=== PATIENT | male | born 1965 | race African-American/Black ===

== ENCOUNTER 2017-06-05 16:10 | Emergency (ER) | payer MEDICAID, OTHER ==
[~2017-06-05] VITALS: Ht 185.4 cm; Wt 90.7 kg
[2017-06-05 16:57] VITALS: BP 138/94
[2017-06-05] MEDS ORDERED: SEROQUEL200 MG ORAL (17:24)
[2017-06-05] MEDS ORDERED: ZOLOFT20 MG/1 ML ORAL (17:24)
[2017-06-05] MEDS ORDERED: ZYPREXA20 MG ORAL (17:24)
[2017-06-05] MEDS ORDERED: QUEtiapine 200mg tab ORAL ONE ×2 (17:45)
[2017-06-05] MEDS ORDERED: ZyPREXA Zydis 10mg tab ORAL ONE (17:45)
[2017-06-05] MEDS ORDERED: Sertraline 50mg tab ORAL ONE (17:45)
[2017-06-05 18:13] LABS: BASOPHILS % (AUTO) 0.8 % (0.0-2.0); EOSINOPHILS % (AUTO) 0.2 % (0.0-3.0); HEMATOCRIT 45.6 % (42.0-52.0); LYMPHOCYTES % (AUTO) 16.9 % (20.0-45.0); MEAN CORPUSCULAR VOLUME 92 FL (80-99); MONOCYTES % (AUTO) 4.5 % (1.0-10.0); NEUTROPHILS % (AUTO) 77.6 % (45.0-75.0); PLATELET COUNT 276 K/UL (150-450); RED BLOOD COUNT 4.97 M/UL (4.70-6.10); RED CELL DISTRIBUTION WIDTH 10.5 % (11.6-14.8); WHITE BLOOD COUNT 8.8 K/UL (4.8-10.8)
[2017-06-05 18:34] LABS: ANION GAP 5 mmol/L (5-15); BLOOD UREA NITROGEN 8 mg/dL (7-18); CALCIUM 9.2 MG/DL (8.5-10.1); CARBON DIOXIDE 29 MMOL/L (21-32); CHLORIDE 104 MMOL/L (98-107); CREATININE 1.3 MG/DL (0.55-1.30); POTASSIUM 4.2 MMOL/L (3.5-5.1); SODIUM 138 MMOL/L (136-145)
[2017-06-05 18:39] LABS: ALANINE AMINOTRANSFERASE 23 U/L (12-78); ALBUMIN 3.9 G/DL (3.4-5.0); ALKALINE PHOSPHATASE 82 U/L (46-116); ASPARTATE AMINO TRANSFERASE 17 U/L (15-37); BILIRUBIN,TOTAL 0.3 MG/DL (0.2-1.0)
[2017-06-05 21:04] VITALS: BP 127/88
--- NOTE | 2017-06-05 22:44 | Emergency Room Report ---
History of Present Illness General Chief Complaint: Suicidal Source: Patient Present Illness HPI 52-year-old male presents ED for evaluation. Patient states he is feeling suicidal or wants to hurt himself the last few days. Has a plan to use a knife. Sister was concerned so asked patient come to hospital for evaluation. Patient states he is hearing voices. Denies smoking or drug use. Notes psychiatric history but states he has not been compliant with his medication for several months. normally takes Seroquel, Zyprexa and Zoloft. No other aggravating or relieving factors. Denies any other associated symptoms Allergies: Coded Allergies: No Known Allergies (Unverified , 06/05/17) Patient History Past Medical History: psych hx Past Surgical History: none Pertinent Family History: none Social History: Denies: smoking, alcohol use, drug use Immunizations: UTD Reviewed Nursing Documentation: PMH: Agreed, PSxH: Agreed Nursing Documentation-PMH Hx Neurological Problems: Yes - Schizophrenia; Paranoia Review of Systems All Other Systems: negative except mentioned in HPI Physical Exam Vital Signs Date Time Temp Pulse Resp B/P (MAP) Pulse Ox O2 Delivery O2 Flow Rate FiO2 06/05/17 16:47 98.4 77 16 141/97 97 06/05/17 16:57 Room Air Sp02 EP Interpretation: reviewed, normal General Appearance: no apparent distress, alert, GCS 15, non-toxic Head: normocephalic, atraumatic Eyes: bilateral eye normal inspection, bilateral eye PERRL ENT: hearing grossly normal, normal pharynx, no angioedema, normal voice Neck: full range of motion, supple/symm/no masses Respiratory: chest non-tender, lungs clear, normal breath sounds, speaking full sentences Cardiovascular #1: regular rate, rhythm, no edema Cardiovascular #2: 2+ carotid (R), 2+ carotid (L), 2+ radial (R), 2+ radial (L) , 2+ dorsalis pedis (R), 2+ dorsalis pedis (L) Gastrointestinal: normal bowel sounds, non tender, soft, non-distended, no guarding, no rebound Rectal: deferred Genitourinary: normal inspection, no CVA tenderness Musculoskeletal: back normal, gait/station normal, normal range of motion, non- tender Neurologic: alert, oriented x3, responsive, motor strength/tone normal, sensory intact, speech normal Psychiatric: judgement/insight normal, memory normal, depressed affect Suicide Risk Assessment: Suicidal Ideation: Yes Had intent to initiate attempt: Yes Pt's plan for suicide attempt: Yes Has means to complete attempt: Yes Reflexes: 3+ bicep (R), 3+ bicep (L), 3+ tricep (R), 3+ tricep (L), 3+ knee (R) , 3+ knee (L) Skin: normal color, no rash, warm/dry, well hydrated Lymphatic: no adenopathy Medical Decision Making Diagnostic Impression: Primary Impression: Suicidal ideation ER Course Hospital Course 71-year-old female presents to ED for suicidal ideation. History of depression. Differential diagnoses include: Major depressive disorder, unspecified psychosis , EtOH abuse, drug abuse Clinical course Patient placed on stretcher. On one to one observation. After initial history and physical I ordered labs, U. tox Labs-electrolytes normal, aspirin/Tylenol levels normal, EtOH level normal Patient given his normal medications Zoloft, Zyprexa, Seroquel On reassessment patient still maintains he feels suicidal and is hearing voices Patient is medically cleared and pending psychiatric evaluation. i. I feel this is a highly complex case requiring extensive working including EKG/Rhythm strip, Xray/CT/US, Blood/urine lab work, repeat exams while in ED, and administration of strong opiates/narcotics for pain control, admission to hospital or close patient follow up. Labs Test 06/05/17 17:53 06/05/17 19:07 White Blood Count 8.8 K/UL (4.8-10.8) Red Blood Count 4.97 M/UL (4.70-6.10) Hemoglobin 16.0 G/DL (14.2-18.0) Hematocrit 45.6 % (42.0-52.0) Mean Corpuscular Volume 92 FL (80-99) Mean Corpuscular Hemoglobin 32.2 PG (27.0-31.0) Mean Corpuscular Hemoglobin Concent 35.2 G/DL (32.0-36.0) Red Cell Distribution Width 10.5 % (11.6-14.8) Platelet Count 276 K/UL (150-450) Mean Platelet Volume 7.4 FL (6.5-10.1) Neutrophils (%) (Auto) 77.6 % (45.0-75.0) Lymphocytes (%) (Auto) 16.9 % (20.0-45.0) Monocytes (%) (Auto) 4.5 % (1.0-10.0) Eosinophils (%) (Auto) 0.2 % (0.0-3.0) Basophils (%) (Auto) 0.8 % (0.0-2.0) Sodium Level 138 MMOL/L (136-145) Potassium Level 4.2 MMOL/L (3.5-5.1) Chloride Level 104 MMOL/L (98-107) Carbon Dioxide Level 29 MMOL/L (21-32) Anion Gap 5 mmol/L (5-15) Blood Urea Nitrogen 8 mg/dL (7-18) Creatinine 1.3 MG/DL (0.55-1.30) Estimat Glomerular Filtration Rate > 60 mL/min (>60) Glucose Level 99 MG/DL (74-106) Calcium Level 9.2 MG/DL (8.5-10.1) Total Bilirubin 0.3 MG/DL (0.2-1.0) Aspartate Amino Transf (AST/SGOT) 17 U/L (15-37) Alanine Aminotransferase (ALT/SGPT) 23 U/L (12-78) Alkaline Phosphatase 82 U/L (46-116) Total Protein 7.7 G/DL (6.4-8.2) Albumin 3.9 G/DL (3.4-5.0) Globulin 3.8 g/dL Albumin/Globulin Ratio 1.0 (1.0-2.7) Salicylates Level 2.9 ug/mL (2.8-20) Acetaminophen Level < 2 MCG/ML (10-30) Serum Alcohol < 3 mg/dL Urine Opiates Screen Negative (NEGATIVE) Urine Barbiturates Screen Negative (NEGATIVE) Phencyclidine (PCP) Screen Negative (NEGATIVE) Urine Amphetamines Screen Negative (NEGATIVE) Urine Benzodiazepines Screen Negative (NEGATIVE) Urine Cocaine Screen Negative (NEGATIVE) Urine Marijuana (THC) Screen Negative (NEGATIVE) Last Vital Signs Date Time Temp Pulse Resp B/P (MAP) Pulse Ox O2 Delivery O2 Flow Rate FiO2 06/05/17 21:04 98.4 72 14 127/88 99 Room Air Status: improved Disposition: XFER TO PSYCH HOSP/UNIT Condition: Serious Referrals: [facility],REFERRING (PCP) ESSIE CONROY M.D. Jun 05, 2017 22:44
[2017-06-06] VITALS: BP 132/88
[2017-06-06 03:00] VITALS: BP 127/85
[2017-06-06 04:52] VITALS: BP 127/87
[2017-06-06 05:45] VITALS: BP 127/87
== END 2017-06-06 05:45 ==
LOC: EMR 18:10
DX: R45.851 Suicidal ideations (principal)
CPT/HCPCS: 36415; 80053; 80307; 80329; 85025; 96374; 99285; S0028

== ENCOUNTER 2017-10-17 21:40 | Emergency (ER) | payer OTHER ==
[~2017-10-17] VITALS: Ht 185.4 cm; Wt 90.7 kg
[~2017-10-17 21:40] MED LIST: SEROQUEL200 MG ORAL; ZOLOFT20 MG/1 ML ORAL; ZYPREXA20 MG ORAL
--- NOTE | 2017-10-17 23:57 | Emergency Room Report ---
History of Present Illness General Chief Complaint: General Complaint Source: Significant Other Present Illness HPI Patient is a 52-year-old male brought in by self for increased suicidal thoughts. Patient reports having had recently used methamphetamine in the past 3 days. Patient reports having increased thoughts of harming himself. He states he has auditory hallucinations. The patient states he is normally taking his Zyprexa and Seroquel however he's been out of his medications for approximately one week. He was last hospitalized at [facility] Allergies: Coded Allergies: No Known Allergies (Unverified , 06/05/17) Patient History Past Medical History: see triage record Reviewed Nursing Documentation: PMH: Agreed; PSxH: Agreed Nursing Documentation-PMH Past Medical History: No Stated History Hx Neurological Problems: Yes - Schizophrenia; Paranoia Review of Systems All Other Systems: negative except mentioned in HPI Physical Exam Vital Signs Date Time Temp Pulse Resp B/P (MAP) Pulse Ox O2 Delivery O2 Flow Rate FiO2 10/17/17 21:55 98.0 10 18 133/94 100 Room Air 98.1 Sp02 EP Interpretation: reviewed, normal General Appearance: alert/responsive, no apparent distress, GCS 15, non-toxic Head: atraumatic Eyes: PERRL, lids + conjunctiva normal ENT: hearing intact, no angioedema Neck: supple/symm/no masses, no meningismus Respiratory: effort normal, no wheezing, chest symmetrical Cardiovascular: regular rate, rhythm, no edema Cardiovascular #2: 2+ carotid (R), 2+ carotid (L), 2+ dorsalis pedis (R), 2+ dorsalis pedis (L) Gastrointestinal: non-tender, no mass, non-distended, no rebound/guarding, normal bowel sounds Musculoskeletal: gait & station normal, strength & tone normal, normal ROM, non -tender Neurologic: oriented x3, sensory intact, normal speech Skin: no rash, well hydrated Lymphatic: normal inspection Medical Decision Making Diagnostic Impression: Primary Impression: Schizophrenia Additional Impression: Substance abuse ER Course patient presented for psychosis. Differential diagnoses include substance abuse , psychosis, bipolar disorder, depression, malingering. Because of complexity of patient's case laboratory testing and imaging studies were ordered. The patient was noted to have evidence of a recent drug use his urine drug screen shows evidence of amphetamine as well as cocaine. This is consistent with the patient's recent statements. The patient was given Zyprexa. Patient was noted to have some improvement. Repeat laboratory testing showed improvement and patient's potassium. The patient is medically cleared for psychiatric placement. Patient was agreeable with voluntary placement at [facility] and was accepted as a transfer. This report is dictated with Dr Lal [employer] pulling unit floorhand software which may occasionally lead to discrepancies related to use of this software. Labs Test 10/17/17 23:41 10/18/17 01:06 10/18/17 03:11 White Blood Count 11.6 K/UL (4.8-10.8) Red Blood Count 5.67 M/UL (4.70-6.10) Hemoglobin 18.0 G/DL (14.2-18.0) Hematocrit 52.2 % (42.0-52.0) Mean Corpuscular Volume 92 FL (80-99) Mean Corpuscular Hemoglobin 31.9 PG (27.0-31.0) Mean Corpuscular Hemoglobin Concent 34.6 G/DL (32.0-36.0) Red Cell Distribution Width 11.4 % (11.6-14.8) Platelet Count 247 K/UL (150-450) Mean Platelet Volume 7.3 FL (6.5-10.1) Neutrophils (%) (Auto) 72.8 % (45.0-75.0) Lymphocytes (%) (Auto) 18.0 % (20.0-45.0) Monocytes (%) (Auto) 8.0 % (1.0-10.0) Eosinophils (%) (Auto) 0.1 % (0.0-3.0) Basophils (%) (Auto) 1.0 % (0.0-2.0) Salicylates Level 0.3 ug/mL (2.8-20) Acetaminophen Level < 2 MCG/ML (10-30) Serum Alcohol < 3 mg/dL Urine Color Yellow Urine Appearance Clear Urine pH 6 (4.5-8.0) Urine Specific [place] 1.015 (1.005-1.035) Urine Protein Negative (NEGATIVE) Urine Glucose (UA) Negative (NEGATIVE) Urine Ketones Negative (NEGATIVE) Urine Occult Blood Negative (NEGATIVE) Urine Nitrite Negative (NEGATIVE) Urine Bilirubin Negative (NEGATIVE) Urine Urobilinogen Normal MG/DL (0.0-1.0) Urine Leukocyte Esterase Negative (NEGATIVE) Urine Opiates Screen Negative (NEGATIVE) Urine Barbiturates Screen Negative (NEGATIVE) Phencyclidine (PCP) Screen Negative (NEGATIVE) Urine Amphetamines Screen Positive (NEGATIVE) Urine Benzodiazepines Screen Negative (NEGATIVE) Urine Cocaine Screen Positive (NEGATIVE) Urine Marijuana (THC) Screen Negative (NEGATIVE) Sodium Level 138 MMOL/L (136-145) Potassium Level 3.8 MMOL/L (3.5-5.1) Chloride Level 102 MMOL/L (98-107) Carbon Dioxide Level 28 MMOL/L (21-32) Anion Gap 8 mmol/L (5-15) Blood Urea Nitrogen 14 mg/dL (7-18) Creatinine 1.6 MG/DL (0.55-1.30) Estimat Glomerular Filtration Rate 55.8 mL/min (>60) Glucose Level 108 MG/DL (74-106) Calcium Level 9.1 MG/DL (8.5-10.1) Total Bilirubin 0.5 MG/DL (0.2-1.0) Aspartate Amino Transf (AST/SGOT) 17 U/L (15-37) Alanine Aminotransferase (ALT/SGPT) 23 U/L (12-78) Alkaline Phosphatase 81 U/L (46-116) Total Protein 8.2 G/DL (6.4-8.2) Albumin 4.0 G/DL (3.4-5.0) Globulin 4.2 g/dL Albumin/Globulin Ratio 1.0 (1.0-2.7) Last Vital Signs Date Time Temp Pulse Resp B/P (MAP) Pulse Ox O2 Delivery O2 Flow Rate FiO2 10/17/17 21:55 98.0 10 18 133/94 100 Room Air 98.1 Status: improved Disposition: XFER SHT-TRM HOSP Condition: Stable Referrals: [facility],REFERRING (PCP) Hay Barfield MD Oct 17, 2017 23:57
[2017-10-18 00:02] LABS: EOSINOPHILS % (AUTO) 0.1 % (0.0-3.0); HEMATOCRIT 52.2 % (42.0-52.0); MEAN CORPUSCULAR VOLUME 92 FL (80-99); NEUTROPHILS % (AUTO) 72.8 % (45.0-75.0); PLATELET COUNT 247 K/UL (150-450); RED BLOOD COUNT 5.67 M/UL (4.70-6.10); RED CELL DISTRIBUTION WIDTH 11.4 % (11.6-14.8); WHITE BLOOD COUNT 11.6 K/UL (4.8-10.8)
[2017-10-18 00:20] LABS: ALANINE AMINOTRANSFERASE 23 U/L (12-78); ALBUMIN 3.7 G/DL (3.4-5.0); ALBUMIN/GLOBULIN RATIO 0.8 (1.0-2.7); ALKALINE PHOSPHATASE 76 U/L (46-116); ANION GAP 7 mmol/L (5-15); ASPARTATE AMINO TRANSFERASE 39 U/L (15-37); BILIRUBIN,TOTAL 0.5 MG/DL (0.2-1.0); BLOOD UREA NITROGEN 15 mg/dL (7-18); CARBON DIOXIDE 22 MMOL/L (21-32); CHLORIDE 104 MMOL/L (98-107); SODIUM 133 MMOL/L (136-145)
[2017-10-18 00:27] LABS: POTASSIUM 5.4 MMOL/L (3.5-5.1)
[2017-10-18 00:31] LABS: CREATININE 1.4 MG/DL (0.55-1.30)
[2017-10-18 00:33] LABS: CALCIUM 9.5 MG/DL (8.5-10.1)
[2017-10-18 01:32] LABS: APPEARANCE,URINE CLEAR; BILIRUBIN, URINE NEGATIVE (NEGATIVE); GLUCOSE, URINE (UA) NEGATIVE (NEGATIVE); KETONES,URINE NEGATIVE (NEGATIVE); LEUKOCYTE ESTERASE ,URINE NEGATIVE (NEGATIVE); NITRITE,URINE NEGATIVE (NEGATIVE); PH,URINE 6 (4.5-8.0); UROBILINOGEN,URINE NORMAL MG/DL (0.0-1.0)
[2017-10-18 01:43] LABS: COLOR,URINE YELLOW; PROTEIN,URINE NEGATIVE (NEGATIVE)
[2017-10-18 03:29] LABS: ANION GAP 8 mmol/L (5-15); BLOOD UREA NITROGEN 14 mg/dL (7-18); CALCIUM 9.1 MG/DL (8.5-10.1); CARBON DIOXIDE 28 MMOL/L (21-32); CHLORIDE 102 MMOL/L (98-107); CREATININE 1.6 MG/DL (0.55-1.30); POTASSIUM 3.8 MMOL/L (3.5-5.1); SODIUM 138 MMOL/L (136-145)
[2017-10-18 03:34] LABS: ALANINE AMINOTRANSFERASE 23 U/L (12-78); ALKALINE PHOSPHATASE 81 U/L (46-116); ASPARTATE AMINO TRANSFERASE 17 U/L (15-37); BILIRUBIN,TOTAL 0.5 MG/DL (0.2-1.0)
[2017-10-18 03:35] VITALS: BP 179/102
[2017-10-18] MEDS ORDERED: LORazepam Inj 2mg/ml 1ml IM ONE (05:45)
[2017-10-18 05:54] VITALS: BP 178/112
[2017-10-18 07:02] VITALS: BP 170/111
[2017-10-18 09:00] VITALS: BP 148/87
[2017-10-18 11:01] VITALS: BP 148/87
== END 2017-10-18 11:03 | disposition short-term general hospital (02) ==
LOC: EMR 22:27
DX: F20.9 Schizophrenia, unspecified (principal); F15.10 Other stimulant abuse, uncomplicated
CPT/HCPCS: 36415; 80053; 80307; 80329; 81003; 85025; 96372; 99285

== ENCOUNTER 2017-11-04 08:24 | Emergency (ER) | payer OTHER ==
[~2017-11-04] VITALS: Ht 185.4 cm; Wt 90.7 kg
[2017-11-04 08:46] VITALS: BP 143/96
[2017-11-04] MEDS ORDERED: Haloperidol 5mg/ml Inj IM ONE (09:00)
[2017-11-04] MEDS ORDERED: QUEtiapine 200mg tab ORAL ONE (09:45)
[2017-11-04 10:02] LABS: BASOPHILS % (AUTO) 1.2 % (0.0-2.0); EOSINOPHILS % (AUTO) 0.2 % (0.0-3.0); HEMATOCRIT 40.4 % (42.0-52.0); LYMPHOCYTES % (AUTO) 18.8 % (20.0-45.0); MEAN CORPUSCULAR VOLUME 90 FL (80-99); MONOCYTES % (AUTO) 5.3 % (1.0-10.0); NEUTROPHILS % (AUTO) 74.6 % (45.0-75.0); PLATELET COUNT 253 K/UL (150-450); RED BLOOD COUNT 4.47 M/UL (4.70-6.10); RED CELL DISTRIBUTION WIDTH 10.5 % (11.6-14.8); WHITE BLOOD COUNT 10.4 K/UL (4.8-10.8)
--- NOTE | 2017-11-04 10:12 | Emergency Room Report ---
History of Present Illness General Chief Complaint: Suicidal Source: Patient Present Illness HPI 52-year-old male presents ED for evaluation. Patient states he is hearing voices that are telling him to hurt himself for several weeks. Patient notes history of schizophrenia. States he normally takes Zyprexa and seroquel but has not had his medication and some time. Denies drug use. States he would like to try medications here to see if it helps him. No other aggravating relieving factors. Denies any other associated symptoms Allergies: Coded Allergies: No Known Allergies (Unverified , 06/05/17) Patient History Past Medical History: psych hx Past Surgical History: none Pertinent Family History: none Social History: Denies: smoking, alcohol use, drug use Reviewed Nursing Documentation: PMH: Agreed; PSxH: Agreed Nursing Documentation-PMH Past Medical History: No History, Except For Hx Neurological Problems: Yes - Schizophrenia; Paranoia Review of Systems All Other Systems: negative except mentioned in HPI Physical Exam Vital Signs Date Time Temp Pulse Resp B/P (MAP) Pulse Ox O2 Delivery O2 Flow Rate FiO2 11/04/17 08:27 98.8 114 16 143/96 95 Room Air 98.8 Sp02 EP Interpretation: reviewed, normal General Appearance: no apparent distress, alert, GCS 15, non-toxic Head: normocephalic, atraumatic Eyes: bilateral eye normal inspection, bilateral eye PERRL ENT: hearing grossly normal, normal pharynx, no angioedema, normal voice Neck: full range of motion, supple/symm/no masses Respiratory: chest non-tender, lungs clear, normal breath sounds, speaking full sentences Cardiovascular #1: regular rate, rhythm, no edema Cardiovascular #2: 2+ carotid (R), 2+ carotid (L), 2+ radial (R), 2+ radial (L) , 2+ dorsalis pedis (R), 2+ dorsalis pedis (L) Gastrointestinal: normal bowel sounds, non tender, soft, non-distended, no guarding, no rebound Rectal: deferred Genitourinary: normal inspection, no CVA tenderness Musculoskeletal: back normal, gait/station normal, normal range of motion, non- tender Neurologic: alert, oriented x3, responsive, motor strength/tone normal, sensory intact, speech normal Psychiatric: memory normal, depressed affect, anxious Reflexes: 3+ bicep (R), 3+ bicep (L), 3+ tricep (R), 3+ tricep (L), 3+ knee (R) , 3+ knee (L) Skin: normal color, no rash, warm/dry, well hydrated Lymphatic: no adenopathy Medical Decision Making Diagnostic Impression: Primary Impression: Suicidal ideation ER Course Hospital Course 52-year-old female presents to ED for suicidal ideation. hearing voices Differential diagnoses include: Major depressive disorder, unspecified psychosis , EtOH abuse, drug abuse Clinical course Patient placed on stretcher. On one to one observation. After initial history and physical I ordered labs, U. tox Labs-electrolytes normal, aspirin/Tylenol levels normal, EtOH level normal Patient given Haldol, Seroquel here. Still having voices. Given Zyprexa. Patient is requesting placement. We will work on voluntary placement. Patient is medically cleared i. I feel this is a highly complex case requiring extensive working including EKG/Rhythm strip, Xray/CT/US, Blood/urine lab work, repeat exams while in ED, and administration of strong opiates/narcotics for pain control, admission to hospital or close patient follow up. Labs Test 11/04/17 09:49 White Blood Count 10.4 K/UL (4.8-10.8) Red Blood Count 4.47 M/UL (4.70-6.10) Hemoglobin 14.0 G/DL (14.2-18.0) Hematocrit 40.4 % (42.0-52.0) Mean Corpuscular Volume 90 FL (80-99) Mean Corpuscular Hemoglobin 31.3 PG (27.0-31.0) Mean Corpuscular Hemoglobin Concent 34.6 G/DL (32.0-36.0) Red Cell Distribution Width 10.5 % (11.6-14.8) Platelet Count 253 K/UL (150-450) Mean Platelet Volume 6.9 FL (6.5-10.1) Neutrophils (%) (Auto) 74.6 % (45.0-75.0) Lymphocytes (%) (Auto) 18.8 % (20.0-45.0) Monocytes (%) (Auto) 5.3 % (1.0-10.0) Eosinophils (%) (Auto) 0.2 % (0.0-3.0) Basophils (%) (Auto) 1.2 % (0.0-2.0) Sodium Level 143 MMOL/L (136-145) Potassium Level 4.0 MMOL/L (3.5-5.1) Chloride Level 108 MMOL/L (98-107) Carbon Dioxide Level 25 MMOL/L (21-32) Anion Gap 11 mmol/L (5-15) Blood Urea Nitrogen 14 mg/dL (7-18) Creatinine 1.5 MG/DL (0.55-1.30) Estimat Glomerular Filtration Rate > 60 mL/min (>60) Glucose Level 88 MG/DL (74-106) Calcium Level 8.8 MG/DL (8.5-10.1) Total Bilirubin 0.3 MG/DL (0.2-1.0) Aspartate Amino Transf (AST/SGOT) 21 U/L (15-37) Alanine Aminotransferase (ALT/SGPT) 25 U/L (12-78) Alkaline Phosphatase 70 U/L (46-116) Total Protein 7.7 G/DL (6.4-8.2) Albumin 3.9 G/DL (3.4-5.0) Globulin 3.8 g/dL Albumin/Globulin Ratio 1.0 (1.0-2.7) Salicylates Level 2.2 ug/mL (2.8-20) Acetaminophen Level < 2 MCG/ML (10-30) Serum Alcohol < 3 mg/dL Last Vital Signs Date Time Temp Pulse Resp B/P (MAP) Pulse Ox O2 Delivery O2 Flow Rate FiO2 11/04/17 08:46 98.8 114 16 143/96 95 Room Air 98.8 Status: improved Disposition: XFER SHT-TRM HOSP Condition: Serious Referrals: [facility],REFERRING (PCP) Tim Baires MD Nov 04, 2017 10:12
[2017-11-04 10:21] LABS: BLOOD UREA NITROGEN 14 mg/dL (7-18); SODIUM 143 MMOL/L (136-145)
[2017-11-04 10:23] LABS: ANION GAP 11 mmol/L (5-15); CALCIUM 8.8 MG/DL (8.5-10.1); CARBON DIOXIDE 25 MMOL/L (21-32); CHLORIDE 108 MMOL/L (98-107); CREATININE 1.5 MG/DL (0.55-1.30)
[2017-11-04 10:26] LABS: ALANINE AMINOTRANSFERASE 25 U/L (12-78); ALBUMIN 3.9 G/DL (3.4-5.0); ALKALINE PHOSPHATASE 70 U/L (46-116); ASPARTATE AMINO TRANSFERASE 21 U/L (15-37); BILIRUBIN,TOTAL 0.3 MG/DL (0.2-1.0)
[2017-11-04 12:00] VITALS: BP 136/92
[2017-11-04] MEDS ORDERED: ZyPREXA Zydis 10mg tab ORAL ONE (13:45)
[2017-11-04 16:00] VITALS: BP 111/78
[2017-11-04 19:30] VITALS: BP 118/78
[2017-11-04 21:30] VITALS: BP 126/75
[2017-11-04 23:30] VITALS: BP 126/69
[2017-11-05 01:30] VITALS: BP 122/65
[2017-11-05 03:30] VITALS: BP 138/70
[2017-11-05 05:30] VITALS: BP 135/76
[2017-11-05 08:45] VITALS: BP 131/94
[2017-11-05] MEDS ORDERED: ZYPREXA10 MG ORAL (12:52)
[2017-11-05 13:03] VITALS: BP 131/94
== END 2017-11-05 13:03 | disposition short-term general hospital (02) ==
LOC: EMR 08:50
DX: R45.851 Suicidal ideations (principal); F20.0 Paranoid schizophrenia
CPT/HCPCS: 36415; 80053; 80307; 80329; 85025; 96372; 99285; J1630

== ENCOUNTER 2019-02-27 10:17 | Emergency (ER) | payer OTHER ==
[~2019-02-27] VITALS: Ht 185.4 cm; Wt 90.7 kg
[~2019-02-27 10:17] MED LIST changes: +ZYPREXA10 MG ORAL
--- NOTE | 2019-02-27 10:17 | NUR ---
ED Nurse Note: PT BROUGHT IN BY RA 826 DUE TO BEHAVIORAL COMPLAINT. PT CLAMS HE IS SI AND PLANS TO STAB HIMSELF WITH A KNIFE. PT STATES HE HAD PREVIOUS SI ATTEMPTS A WEEK AGO. AAO X 4, AMBULATES WITH STEADY GAIT. PT STATES HE HEARS VOICES TELLING HIM TO KIL HIMSELF. NO WEAPON/KNIFE IN HIS BELONGINGS. ERMD NOTIFIED.
--- NOTE | 2019-02-27 10:23 | NUR ---
ED Nurse Note: BELONGING'S PLACED ON PSYCH LOCKER #2.
--- NOTE | 2019-02-27 10:25 | Emergency Room Report ---
History of Present Illness General Chief Complaint: Suicidal Source: Patient (Hay Barfield MD) Present Illness HPI Patient is a 53-year-old male brought in by EMS after increased suicidal thoughts. Patient reports having recently been released from [facility]. He had reportedly been taking Prolixin at that time. He had prior history of substance abuse. Reports having increased suicidal thoughts since discharge. He states been off medications and had not been able to take his medication since discharge. He states his been off medications for 3 days. He previously had been prescribed Prolixin. (Hay Barfield MD) Allergies: Coded Allergies: No Known Allergies (Unverified , 06/05/17) Patient History Past Medical History: see triage record Reviewed Nursing Documentation: PMH: Agreed; PSxH: Agreed (Hay Barfield MD) Nursing Documentation-PMH Past Medical History: No History, Except For Hx Hypertension: Yes History Of Psychiatric Problem: Yes Hx Neurological Problems: Yes - Schizophrenia; Paranoia (Hay Barfield MD) Review of Systems All Other Systems: negative except mentioned in HPI (Hay Barfield MD) Physical Exam Vital Signs Date Time Temp Pulse Resp B/P (MAP) Pulse Ox O2 Delivery O2 Flow Rate FiO2 02/27/19 10:07 98.8 80 16 170/98 (122) 98 Room Air Sp02 EP Interpretation: reviewed, normal General Appearance: alert/responsive, no apparent distress, GCS 15, non-toxic Head: atraumatic Eyes: PERRL, lids + conjunctiva normal ENT: hearing intact, no angioedema Neck: supple/symm/no masses, no meningismus Respiratory: effort normal, no wheezing, chest symmetrical Cardiovascular: regular rate, rhythm, no edema Cardiovascular #2: 2+ carotid (R), 2+ carotid (L), 2+ dorsalis pedis (R), 2+ dorsalis pedis (L) Gastrointestinal: non-tender, no mass, non-distended, no rebound/guarding, normal bowel sounds Musculoskeletal: normal inspection, gait & station normal, strength & tone normal, normal ROM, non-tender Neurologic: normal inspection, CN II-XII intact, oriented x3, sensory intact, normal speech Skin: no rash, well hydrated Lymphatic: normal inspection (Hay Barfield MD) Medical Decision Making Diagnostic Impression: Primary Impression: Suicidal ideations Additional Impression: Psychosis ER Course Patient presented for suicidal thoughts. Differential diagnoses include substance abuse, psychosis, bipolar disorder, depression, malingering. Because of complexity of patient's case laboratory tests were ordered. Patient had recently been released from the hospital. He was given oral Prolixin he does not appear to be in any acute distress. Patient was placed on a 5150 hold by [employer]. He is medically cleared for psychiatric placement. Labs Test 02/27/19 11:00 02/27/19 11:25 White Blood Count 10.9 K/UL (4.8-10.8) Red Blood Count 5.08 M/UL (4.70-6.10) Hemoglobin 15.4 G/DL (14.2-18.0) Hematocrit 45.2 % (42.0-52.0) Mean Corpuscular Volume 89 FL (80-99) Mean Corpuscular Hemoglobin 30.3 PG (27.0-31.0) Mean Corpuscular Hemoglobin Concent 34.1 G/DL (32.0-36.0) Red Cell Distribution Width 11.9 % (11.6-14.8) Platelet Count 240 K/UL (150-450) Mean Platelet Volume 6.1 FL (6.5-10.1) Neutrophils (%) (Auto) 74.3 % (45.0-75.0) Lymphocytes (%) (Auto) 18.5 % (20.0-45.0) Monocytes (%) (Auto) 6.0 % (1.0-10.0) Eosinophils (%) (Auto) 0.2 % (0.0-3.0) Basophils (%) (Auto) 1.1 % (0.0-2.0) Sodium Level 143 MMOL/L (136-145) Potassium Level 4.1 MMOL/L (3.5-5.1) Chloride Level 106 MMOL/L (98-107) Carbon Dioxide Level 27 MMOL/L (21-32) Anion Gap 10 mmol/L (5-15) Blood Urea Nitrogen 15 mg/dL (7-18) Creatinine 1.1 MG/DL (0.55-1.30) Estimat Glomerular Filtration Rate > 60 mL/min (>60) Glucose Level 128 MG/DL (74-106) Calcium Level 9.1 MG/DL (8.5-10.1) Total Bilirubin 0.3 MG/DL (0.2-1.0) Aspartate Amino Transf (AST/SGOT) 20 U/L (15-37) Alanine Aminotransferase (ALT/SGPT) 25 U/L (12-78) Alkaline Phosphatase 70 U/L (46-116) Total Protein 7.8 G/DL (6.4-8.2) Albumin 3.7 G/DL (3.4-5.0) Globulin 4.1 g/dL Albumin/Globulin Ratio 0.9 (1.0-2.7) Salicylates Level 2.9 ug/mL (2.8-20) Acetaminophen Level < 2 MCG/ML (10-30) Serum Alcohol < 3 mg/dL Urine Opiates Screen Negative (NEGATIVE) Urine Barbiturates Screen Negative (NEGATIVE) Phencyclidine (PCP) Screen Negative (NEGATIVE) Urine Amphetamines Screen Positive (NEGATIVE) Urine Benzodiazepines Screen Negative (NEGATIVE) Urine Cocaine Screen Negative (NEGATIVE) Urine Marijuana (THC) Screen Negative (NEGATIVE) (Hay Barfield MD) Last Vital Signs Date Time Temp Pulse Resp B/P (MAP) Pulse Ox O2 Delivery O2 Flow Rate FiO2 02/27/19 10:07 98.8 80 16 170/98 (122) 98 Room Air Status: improved (Hay Barfield MD) Reevaluation Time: 14:23 Status: unchanged Reevaluation Impression Assumed care of the patient from Dr. Barfield approximately 1420. Briefly, this a 53-year-old male who presented with suicidal ideation stating that he would kill himself with a knife. He recently discharged from [facility] and states he has been without his Prolixin for 3 days. Relaxant was given to him in the emergency department. He has been medically cleared for psychiatric placement. He is on a 5150 hold. 2200: Patient remains in the emergency department awaiting placement. His home medications have been ordered. Signed out to oncoming physician pending psychiatric placement. (Noel Clark MD) Disposition: XFER TO PSYCH HOSP/UNIT Condition: Stable Hay Barfield MD Feb 27, 2019 10:25 Noel Clark MD Feb 27, 2019 14:24
[2019-02-27 10:39] VITALS: BP 163/90
--- NOTE | 2019-02-27 10:43 | NUR ---
ED Nurse Note: PRIMARY RN SITTER.
--- NOTE | 2019-02-27 11:03 | NUR ---
ED Nurse Note: COLLECTED BLOOD THEN SENT. UNABLE TO URINATE AT THIS TIME.
[2019-02-27 11:16] LABS: BASOPHILS % (AUTO) 1.1 % (0.0-2.0); EOSINOPHILS % (AUTO) 0.2 % (0.0-3.0); HEMATOCRIT 45.2 % (42.0-52.0); HEMOGLOBIN 15.4 G/DL (14.2-18.0); LYMPHOCYTES % (AUTO) 18.5 % (20.0-45.0); MEAN CORPUSCULAR VOLUME 89 FL (80-99); NEUTROPHILS % (AUTO) 74.3 % (45.0-75.0); PLATELET COUNT 240 K/UL (150-450); RED BLOOD COUNT 5.08 M/UL (4.70-6.10); RED CELL DISTRIBUTION WIDTH 11.9 % (11.6-14.8); WHITE BLOOD COUNT 10.9 K/UL (4.8-10.8)
[2019-02-27 11:25] LABS: ANION GAP 10 mmol/L (5-15); BLOOD UREA NITROGEN 15 mg/dL (7-18); CALCIUM 9.1 MG/DL (8.5-10.1); CARBON DIOXIDE 27 MMOL/L (21-32); CHLORIDE 106 MMOL/L (98-107); CREATININE 1.1 MG/DL (0.55-1.30); POTASSIUM 4.1 MMOL/L (3.5-5.1); SODIUM 143 MMOL/L (136-145)
[2019-02-27 11:29] LABS: ALANINE AMINOTRANSFERASE 25 U/L (12-78); ALBUMIN 3.7 G/DL (3.4-5.0); ALBUMIN/GLOBULIN RATIO 0.9 (1.0-2.7); ALKALINE PHOSPHATASE 70 U/L (46-116); ASPARTATE AMINO TRANSFERASE 20 U/L (15-37); BILIRUBIN,TOTAL 0.3 MG/DL (0.2-1.0)
--- NOTE | 2019-02-27 12:43 | NUR ---
ED Nurse Note: PRIMARY RN THE SITTER. PT IS SLEEPING ON BED WITH NO DISTRESS. LUNCH PROVIDED AND LEFT AT THE BED SIDE.
[2019-02-27 12:58] VITALS: BP 159/92
[2019-02-27 15:00] VITALS: BP 155/96
[2019-02-27 17:17] VITALS: BP 151/91
--- NOTE | 2019-02-27 19:27 | NUR ---
HAND-OFF: Report given to MIGUEL FRYE.
[2019-02-27 20:09] VITALS: BP 148/89
[2019-02-27] MEDS ORDERED: Sertraline 50mg tab ORAL ONE (20:45)
--- NOTE | 2019-02-27 22:00 | NUR ---
ED Nurse Note: Pt awake, no signs of distress. Pt ambulated to bathroom, used the phone and asked about medications. Pt reports having difficulty breathing, stating " i just want these voices in my head to stop". Pt returned to room without issue. Pt resting now awaiting medication. Will wait for further order
[2019-02-28] VITALS: BP 150/100
--- NOTE | 2019-02-28 | NUR ---
ED Nurse Note: Pt in bed with eyes closed, non-labored breathing, offered water. Pt denies pain, no further orders at this time. Will continue to monitor.
--- NOTE | 2019-02-28 02:00 | NUR ---
ED Nurse Note: Pt resting in bed with eyes closed, no signs of distress. Side lying, offered toiletting. Will continue to monitor.
[2019-02-28 04:00] VITALS: BP 159/107
--- NOTE | 2019-02-28 04:00 | NUR ---
ER DISCHARGE NOTE: Patient is cleared to be discharged per ERMD, pt is aox4, on room air, with stable vital signs. pt was given dc and prescription instructions, pt was able to verbalize understanding, pt id band and iv site removed without complications. pt took all belongings. [facility]
== END 2019-02-28 04:00 ==
LOC: EDBD 10:17 → EMR 11:30
DX: F29 Unspecified psychosis not due to a substance or known physiological condition (principal); R45.851 Suicidal ideations; I10 Essential (primary) hypertension; F20.0 Paranoid schizophrenia
CPT/HCPCS: 36415; 80053; 80307; 85025; G0480; G0481; Z7502; 99285